=== PATIENT | female | born 2000 | race Two or more races ===

== ENCOUNTER 2025-03-12 20:27 | Inpatient (IN) | payer BC, OTHER ==
[~2025-03-12] VITALS: Ht 167.6 cm; Wt 112.8 kg
[2025-03-12 20:59] LABS: Hematocrit 42.2 % (36.0-46.0); Hemoglobin 14.2 g/dL (12.2-16.2); Mean Corpuscular Hemoglobin 28.7 pg (28.0-32.0); Mean Corpuscular Volume 85.3 fL (80.0-100.0); Nucleated Red Blood Cells % 0.0 %
--- NOTE | 2025-03-12 21:00 | ED.PDOC ---
History of Present Illness HPI Comments 24 y/o obese F presents with c/c of nonradiating, periumbilical abdominal pain and nausea. Significant history for heart murmurs, palpitations, gallstones, and . Patient endorses ongoing, ripping sensation pain since sudden onset at 0600, this morning. Pain is stated to be on the right side of her naval and is provoked with movement (5-6/10 in severity). She is not, currently, . No endorsed recent ailments, sick contacts, injuries, spoiled food consumption, or additional pertinent events/lifestyle changes. She denies any vomiting, diarrhea, constipation, urinary symptoms, fever, chills, or further associated symptoms. Chief Complaint: Abdominal Pain Time Seen by MD: 20:35 Reviewed Notes: Nurses Notes, Medications, Allergies Allergies: Coded Allergies: No Known Drug Allergy (Verified Allergy, Unknown, 03/12/25) Information Source: Patient Mode of Arrival: Ambulatory Severity: Moderate Timing: Hours Duration: Since onset Prehospital treatment: None Past Medical History PAST MEDICAL HISTORY: Denies Surgical History: Denies all surgeries INCLUSION SPECIAL EDUCATOR History: No Pertinent INCLUSION SPECIAL EDUCATOR History Family History Family History: Reviewed,noncontributory to illness, No family hx of DM, No family hx of Heart abdias, No family hx of HTN, No family hx ofKidney abdias, No family hx of Liver abdias, No family hx of Lung abdias, Family hx of Cancer, Family hx of stroke Social History Smoker: Other (nicotine vape) Alcohol: Denies ETOH Use Drugs: Denies Drug Use Constitutional: denies: chills, diaphoresis, fatigue, fever, malaise, sweats, weakness, others EENTM: denies: blurred vision, double vision, ear bleeding, ear discharge, ear drainage, ear pain, ear ringing, eye pain, eye redness, hearing loss, mouth pain, mouth swelling, nasal discharge, nose bleeding, nose congestion, nose pain, photophobia, tearing, throat pain, throat swelling, voice changes, others Respiratory: denies: cough, hemoptysis, orthopnea, SOB at rest, shortness of breath, SOB with excertion, stridor, wheezing, others Cardiovascular: denies: chest pain, dizzy spells, diaphoresis, Dyspnea on exertion, edema, irregular heart beat, left arm pain, lightheadedness, palpitations, PND, syncope, others Gastrointestinal: reports: abdominal pain, nausea; denies: abdomen distended, blood streaked bowels, constipated, diarrhea, dysphagia, difficulty swallowing, hematemesis, melena, poor appetite, poor fluid intake, rectal bleeding, rectal pain, vomiting, others Genitourinary: denies: abnormal vagina bleeding, burning, dyspareunia, dysuria, flank pain, frequency, hematuria, incontinence, pain, , vagina discharge, urgency, others Neurological: denies: dizziness, fainting, headache, left sided numbness, left sided weakness, numbness, paresthesia, pre-existing deficit, right sided num bness, right sided weakness, seizure, speech problems, tingling, tremors, weakness, others Musculoskeletal: denies: back pain, gout, joint pain, joint swelling, muscle pain, muscle stiffness, neck pain, others Integumetry: denies: bruises, change in color, change in hair/nails, dryness, laceration, lesions, lumps, rash, wounds, others Allergic/Immunocompromised: denies: Difficulty Healing, Frequent Infections, Hives, Itching, others Hematologic/Lymphatic: denies: anemia, blood clots, easy bleeding, easy bruising, swollen glands, others Endocrine: denies: excessive hunger, excessive sweating, excessive thirst, excessive urination, flushing, intolerance to cold, intolerance to heat, unexplained weight gain, unexplained weight loss, others Psychiatric: denies: anxiety, bipolar disorder, depression, hopeless, panic disorder, schizophrenia, sleepless, suicidal, others All Other Systems: Reviewed and Negative Physical Exam General Appearance: Moderate Distress HEENT: Normal ENT Inspection, Pharynx Normal, TMs Normal Neck: Full Range of Motion, Non-Tender, Normal, Normal Inspection Respiratory: Chest Non-Tender, Lungs Clear, No Accessory Muscle Use, No Respiratory Distress, Normal Breath Sounds Cardiovascular: No Edema, No JVD, No Murmur, No Gallop, Normal Peripheral Pulses, Regular Rate/Rhythm Breast Exam: Deferred Gastrointestinal: No Organomegaly, No Pulsatile Mass, Normal Bowel Sounds, RLQ, Soft, Tenderness Genitalia: Deferred Pelvic: Deferred Rectal: Deferred Extremities: No calf tenderness, Normal capillary refill, Normal inspection, Normal range of motion, Non-tender, No pedal edema Musculoskeletal : Apperance: Normal Neurologic: Alert, director life II-XII nml as Tested, No Motor Deficits, Normal Affect, Normal Mood, No Sensory Deficits Cerebellar Function: Normal Reflexes: Normal Skin: Dry, Normal Color, Warm Lymphatic: No Adenopathy Was a procedure done? Was a procedure done?: No Differential Dx Considerations may include: gastritis, gastroenteritis, GERD, cholelithiasis, cholecystitis, viral, constipation, UTI, among others X-Ray, Labs, Meds, VS Vital Signs Date Time Temp Pulse Resp B/P (MAP) Pulse Ox O2 Delivery O2 Flow Rate FiO2 03/12/25 20:29 97.8 89 16 125/83 99 97.8 Lab Test 03/12/25 20:45 Range/Units White Blood Count 10.0 4.4-10.8 10^3/uL Red Blood Count 4.95 4.0-5.20 10^6/uL Hemoglobin 14.2 12.2-16.2 g/dL Hematocrit 42.2 36.0-46.0 % Mean Corpuscular Volume 85.3 80.0-100.0 fL Mean Corpuscular Hemoglobin 28.7 28.0-32.0 pg Mean Corpuscular Hemoglobin Concent 33.6 32.0-36.0 g/dL Red Cell Distribution Width 13.8 11.8-14.3 % Platelet Count 349 140-450 10^3/uL Mean Platelet Volume 8.6 6.9-10.8 fL Neutrophils (%) (Auto) 65.9 37.0-80.0 % Lymphocytes (%) (Auto) 25.9 10.0-50.0 % Monocytes (%) (Auto) 6.0 0.0-12.0 % Eosinophils (%) (Auto) 1.3 0.0-7.0 % Basophils (%) (Auto) 0.9 0.0-2.0 % Neutrophils # (Auto) 6.6 1.6-8.6 10 ^3/uL Lymphocytes # (Auto) 2.6 0.4-5.4 10 ^3/uL Monocytes # (Auto) 0.6 0-1.3 10 ^3/uL Eosinophils # (Auto) 0.1 0-0.8 10 ^3/uL Basophils # (Auto) 0.1 0-0.2 10 ^3/uL Nucleated Red Blood Cells 0.0 % Sodium Level 142 136-145 mmol/L Potassium Level 4.2 3.5-5.1 mmol/L Chloride Level 106 98-107 mmol/L Carbon Dioxide Level 27 20-31 mmol/L Anion Gap 9 5-15 Blood Urea Nitrogen 12 9-23 mg/dL Creatinine 0.90 0.550-1.02 mg/dL Glomerular Filtration Rate Calc 90 >90 mL/min BUN/Creatinine Ratio 13.3 10.0-20.0 Serum Glucose 97 74-106 mg/dL Calcium Level 9.5 8.7-10.4 mg/dL Total Bilirubin 0.3 0.2-1.0 mg/dL Aspartate Amino Transferase (AST) 17 13-40 U/L Alanine Aminotransferase (ALT) 17 7-40 U/L Alkaline Phosphatase 89 46-116 U/L Total Protein 7.6 5.7-8.2 g/dL Albumin 4.7 3.2-4.8 g/dL Lipase 37 12-53 U/L The patient's CBC is within normal limits The chemistry panel is within normal limits The CAT scan of the abdomen and pelvis shows: Impression: 1. The appendix is not visualized in its entirety. There is suspected mild dilation of the appendix measuring up to 1 cm without periappendiceal stranding. 2. Additional findings as detailed. The patient was given Zosyn IV piggyback We are consulting with the general surgeon The patient is being admitted at this time Images Reviewed?: Images reviewed and evaluated by me Time of 1ST Reevaluation: 21:15 Reevaluation 1ST: Unchanged Patient Education/Counseling: Diagnosis, Treatment, Prognosis Family Education/Counseling: No Family Present SEPSIS Sepsis Screen Date sepsis recognized/suspect: Mar 12, 2025 Time Sepsis recognized/suspect: 2030 Recent Procedure: No On Antibiotic Therapy: No Respiratory Rate >20: No Heart Rate >90: No Temp<36 C (96.8 F) or >38.3 C: No SBP <90 or MAP <65 mmHG: No New Acute Mental Status Change: No Is the patient on CPAP, BIPAP,: No Physician Orders Urinalysis (03/12/25 20:38) Ct Ab Pel Wo Con-No Oral Or Iv (03/12/25 20:38) Zosyn Extended Infusion (03/12/25 21:45) Vital Signs Date Time Temp Pulse Resp B/P (MAP) Pulse Ox O2 Delivery O2 Flow Rate FiO2 03/12/25 20:29 97.8 89 16 125/83 99 97.8 Laboratory Tests Test 03/12/25 20:45 White Blood Count 10.0 10^3/uL (4.4-10.8) Departure 1 Departure Time of Disposition: 21:44 Impression: Primary Impression: Intractable abdominal pain Disposition: ADMITTED INPATIENT Admit to: Med Surg Condition: Fair Critical Care Note Critical Care Time?: No Stability Stability form required: Yes Unstable for transfer: ED Physician Assesment (Clinical assesment) Heart Score Heart Score: Heart Score Response (Comments) Value History N/A 0 EKG N/A 0 Age N/A 0 Risk Factors N/A 0 Troponin N/A 0 Total 0 I personally scribed for JOSÉ KAMARA MD ([email or web address]) on 03/12/25 at 21:00. Electronically submitted by Dez Zamora ([email or web address]). JOSÉ KAMARA MD Mar 12, 2025 21:00
[2025-03-12 21:12] LABS: Alanine Aminotransferase 17 U/L (7-40); Albumin 4.7 g/dL (3.2-4.8); Alkaline Phosphatase 89 U/L (46-116); Anion Gap 9 (5-15); BUN/Creatinine Ratio 13.3 (10.0-20.0); Blood Urea Nitrogen 12 mg/dL (9-23); Calcium 9.5 mg/dL (8.7-10.4); Carbon Dioxide 27 mmol/L (20-31); Chloride 106 mmol/L (98-107); Glucose 97 mg/dL (74-106); Lipase 37 U/L (12-53); Potassium 4.2 mmol/L (3.5-5.1); Sodium 142 mmol/L (136-145); Total Protein 7.6 g/dL (5.7-8.2)
[2025-03-12 21:13] LABS: Bilirubin, Total 0.3 mg/dL (0.2-1.0)
--- NOTE | 2025-03-12 21:35 | DVH ---
Exam: CT CT AB PEL WO CON-NO ORAL OR IV History: pain Comparison Study: None TECHNIQUE: Multidetector CT of the abdomen and pelvis was performed from lung bases to pubic symphysis. Imaging was performed without IV contrast. Axial, coronal, and sagittal multiplanar reformats were obtained from the axial data set by the technologist. RADIATION DOSE: CTDI vol 16.4 mGy. DLP 907.9 mGy.cm Findings: Limited evaluation of the solid organs in the absence of IV contrast. Lungs: The lung bases are clear. Liver: Unremarkable. Spleen: Unremarkable. Pancreas: Unremarkable. Gallbladder: Contracted in appearance. Cholelithiasis. Adrenals: Unremarkable Kidneys: Unremarkable. Pelvic Viscera: Unremarkable. Vasculature: Unremarkable. Retroperitoneum: Unremarkable. Bowel: No bowel obstruction. The appendix is not visualized in its entirety. There is suspected mild dilation of the appendix measuring up to 1 cm without periappendiceal stranding. Musculoskeletal: Unremarkable. Soft tissues: Unremarkable Impression: 1. The appendix is not visualized in its entirety. There is suspected mild dilation of the appendix measuring up to 1 cm without periappendiceal stranding. 2. Additional findings as detailed.
[2025-03-12] MEDS ORDERED: PIPERACILLIN-TAZOB 3.375GM 100 ML IV ONE (22:06)
[2025-03-12] MEDS: PIPERACILLIN-TAZOB 3.375GM 100 ML IV ONE (22:21)
[2025-03-12 22:24] VITALS: PULSE 84; RESP 22; O2SAT 99
--- NOTE | 2025-03-12 22:33 | DVH ---
INDICATION: Rule out appendicitis TECHNIQUE: Multiple real-time sonographic images were obtained of the right lower quadrant. COMPARISON: None FINDINGS: Targeted right lower quadrant ultrasound was performed. A tubular structure seen in the right lower quadrant although the tip is difficult to visualize. It is uncertain if this represents the appendix. No significant inflammatory changes IMPRESSION: Appendix not definitely visualized. No secondary inflammatory changes however. Consider CT if there is ongoing clinical concern.
--- NOTE | 2025-03-12 22:35 | DVHHPRES ---
History of Present Illness Resident Creating Document: RAJINDER FUNES RESIDENT History of Present Illness Ms Mera Tavares, 24-year-old female with a past medical history of trace to mild mitral regurgitation, mild left atrial dilation, palpitations with mostly nonsignificant Holter monitoring presented to the ER with the complaints of severe periumbilical pain radiating to the right lower quadrant started since 11:00 a.m. the abdominal pain was associated with mild nausea but no vomiting. She denies any recent sick contacts or travel history. She does not have any chest pain, shortness of breath, fever or any other symptoms. 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 Roe at [place] [facility] Systems Allergies: Coded Allergies: No Known Drug Allergy (Verified Allergy, Unknown, 03/12/25) Exam Vital Signs Vital Signs Date Time Temp Pulse Resp B/P (MAP) Pulse Ox O2 Delivery O2 Flow Rate FiO2 03/12/25 22:24 84 22 99 Room Air* 0 21 03/12/25 22:24 98.4 124/88 (100) 98.4 Exam Pt is lying on bed General Appearance: Alert, Oriented X3, Cooperative, Mild distress HEENT: Atraumatic, Mucous membranes moist/pink Respiratory: Clear to auscultation, Normal air movement, No added sounds Cardiovascular: Regular rate, Normal S1, Normal S2, No murmurs Abdominal/ : Active bowel sounds, Soft, no distention, right lower quadrant tenderness Extremities: No edema, Normal pulses, No tenderness/swelling Skin: No Significant rash, except past surgical scars Neuro: Normal speech, sensorimotor deficits none Psych/Mental Status: Mental status NL, Mood NL 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 Labs/Xrays Labs Test 03/12/25 22:23 03/12/25 20:45 Range/Units White Blood Count 10.0 4.4-10.8 10^3/uL Red Blood Count 4.95 4.0-5.20 10^6/uL Hemoglobin 14.2 12.2-16.2 g/dL Hematocrit 42.2 36.0-46.0 % Mean Corpuscular Volume 85.3 80.0-100.0 fL Mean Corpuscular Hemoglobin 28.7 28.0-32.0 pg Mean Corpuscular Hemoglobin Concent 33.6 32.0-36.0 g/dL Red Cell Distribution Width 13.8 11.8-14.3 % Platelet Count 349 140-450 10^3/uL Mean Platelet Volume 8.6 6.9-10.8 fL Neutrophils (%) (Auto) 65.9 37.0-80.0 % Lymphocytes (%) (Auto) 25.9 10.0-50.0 % Monocytes (%) (Auto) 6.0 0.0-12.0 % Eosinophils (%) (Auto) 1.3 0.0-7.0 % Basophils (%) (Auto) 0.9 0.0-2.0 % Neutrophils # (Auto) 6.6 1.6-8.6 10 ^3/uL Lymphocytes # (Auto) 2.6 0.4-5.4 10 ^3/uL Monocytes # (Auto) 0.6 0-1.3 10 ^3/uL Eosinophils # (Auto) 0.1 0-0.8 10 ^3/uL Basophils # (Auto) 0.1 0-0.2 10 ^3/uL Nucleated Red Blood Cells 0.0 % Sodium Level 142 136-145 mmol/L Potassium Level 4.2 3.5-5.1 mmol/L Chloride Level 106 98-107 mmol/L Carbon Dioxide Level 27 20-31 mmol/L Anion Gap 9 5-15 Blood Urea Nitrogen 12 9-23 mg/dL Creatinine 0.90 0.550-1.02 mg/dL Glomerular Filtration Rate Calc 90 >90 mL/min BUN/Creatinine Ratio 13.3 10.0-20.0 Serum Glucose 97 74-106 mg/dL Calcium Level 9.5 8.7-10.4 mg/dL Total Bilirubin 0.3 0.2-1.0 mg/dL Aspartate Amino Transferase (AST) 17 13-40 U/L Alanine Aminotransferase (ALT) 17 7-40 U/L Alkaline Phosphatase 89 46-116 U/L Total Protein 7.6 5.7-8.2 g/dL Albumin 4.7 3.2-4.8 g/dL Lipase 37 12-53 U/L SEPSIS Sepsis Screen Date sepsis recognized/suspect: Mar 12, 2025 Time Sepsis recognized/suspect: 2224 Recent Procedure: No On Antibiotic Therapy: Yes Respiratory Rate >20: No Heart Rate >90: No Temp<36 C (96.8 F) or >38.3 C: No SBP <90 or MAP <65 mmHG: No New Acute Mental Status Change: No Is the patient on CPAP, BIPAP,: No Physician Orders Urinalysis (03/12/25 20:38) Ct Ab Pel Wo Con-No Oral Or Iv (03/12/25 20:38) Piperacillin-Tazob 3.375gm (Zosyn 3.375g (03/12/25 21:45) * Surgical Consult (03/12/25 ) Right Lower Quad (03/12/25 21:47) Admit (03/12/25 22:33) Notify Md Of Changes From Base (03/12/25 22:33) Vital Signs Date Time Temp Pulse Resp B/P (MAP) Pulse Ox O2 Delivery O2 Flow Rate FiO2 03/12/25 22:24 84 22 99 Room Air* 0 21 03/12/25 22:24 98.4 84 22 124/88 (100) 99 98.4 03/12/25 20:29 97.8 89 16 125/83 99 97.8 Laboratory Tests Test 03/12/25 20:45 White Blood Count 10.0 10^3/uL (4.4-10.8) Medications Medications Dose Ordered Sig/Dede Route Start Time Stop Time Status Last Admin Dose Admin Piperacillin Sod/ Tazobactam Sod 100 ml @ 100 mls/hr ONCE ONCE IV 03/12/25 21:45 03/12/25 22:44 03/12/25 22:21 100 MLS/HR Assessment/Plan Assessment/Plan Acute appendicitis -NPO -IV fluid -IV Zosyn Q 8 -injection ketorolac -abdomen pelvis CT: The appendix is not visualized in its entirety. There is suspected mild dilation of the appendix measuring up to 1 cm without periappendi ceal stranding. Mild MR Mild LAD Palpitations not on home medications Holter monitoring: Minimum heart rate 52, maximum heart rate 160 and average 95 beats per minute. Predominant underlying rhythm sinus rhythm. Isolated SVTs were rare less than 1%, 6 and no SV couplets or SOB triplets at present. Isolated VS were rare and no V couplets or VA triplets were present. Transthoracic echo: Ejection fraction 60-65%, normal diastolic LV function. Left atrium mild dilation. Trace to mild mitral regurgitation. Follow up outpatient with pairer substandard. GI prophylaxis: Not indicated DVT prophylaxis: Not indicated Diet: NPO Goals of care discussed with the patient for more than 27 minutes: Full code status Case discussed with , patient and RN Plan discussed with: Patient, Other (RN) My Orders Orders - RAJINDER FUNES Procedure Category Date Status Time Admit ADMIT 03/12/25 Verified 22:33 Notify Md Of Changes BALA 03/12/25 Verified From Base 22:33 Date of Service: Mar 12, 2025 Billing Provider: DARION GRANT MD Common Visit Codes: [id number] INP/OBS CARE (HIGH) Secondary Visit Codes: [id number] CARE PLAN 30 MINUTES RAJINDER FUNES Mar 12, 2025 22:35
[2025-03-12 22:37] LABS: Urine Protein, UAD Negative (Negative)
[2025-03-12] MEDS: SODIUM CHLORIDE 0.9% 1,000 ML IV ONE (22:45)
[2025-03-12 23:21] LABS: Amphetamine Screen, Urine Neg (NEGATIVE); Barbiturate Scree,Urine Neg (NEGATIVE); Benzodiazephine Screen, Urine Neg (NEGATIVE); Cannabinoid Screen, Urine Neg (NEGATIVE); Cocaine Screen, Urine Neg (NEGATIVE); Opiate Scree,Urine Neg (NEGATIVE); Phencyclidine Screen, Urine Neg (NEGATIVE)
[2025-03-12 23:55] VITALS: BP 121/74; PULSE 84; PULSE 87; RESP 17; RESP 18; TEMP 98.1; O2SAT 100; O2SAT 99
[2025-03-12 23:58] LABS: INR 0.96 (0.9-1.15); Partial Thromboplastin Time 27.1 SEC (24.5-34.5); Prothrombin Time 10.2 sec (9.3-11.8)
[2025-03-13 01:00] VITALS: BP 127/69; PULSE 89; RESP 18; TEMP 98.1; O2SAT 99
[2025-03-13] MEDS ORDERED: PIPERACILLIN-TAZOB 3.375GM 100 ML IV ONE (03:09)
[2025-03-13 05:00] VITALS: BP 117/66; PULSE 83; RESP 18; TEMP 98.3; O2SAT 98
[2025-03-13] MEDS: PIPERACILLIN-TAZOB 3.375GM 100 ML IV SCH (06:03)
[2025-03-13 09:00] VITALS: BP_SYST 127; BP_SYST 86; BP_DIAS 55; BP_DIAS 84; PULSE 79; PULSE 89; RESP 16; RESP 20; TEMP 97.5; TEMP 97.8; O2SAT 94; O2SAT 99
[2025-03-13] MEDS ORDERED: KETOROLAC TROMETH 30 MG/ML 1ML VIAL ONE (11:02)
[2025-03-13] MEDS: KETOROLAC TROMETH 30 MG/ML 1ML VIAL IV PRN (11:22)
[2025-03-13 13:00] VITALS: BP 127/82; PULSE 87; RESP 20; TEMP 98.3; O2SAT 98
[2025-03-13] MEDS ORDERED: BUPIVACAINE 0.25% INJ 50ML VIAL ONE (13:11)
[2025-03-13] MEDS: ceFAZolin 2 GM/D5W50ml 50 ML IV ONE (14:00)
--- NOTE | 2025-03-13 14:00 | DVHINCON2 ---
Consultation - Surgical Date Seen: Mar 13, 2025 Referring Physician Reason for Consultation Appendicitis History of Present Illness History of Present Illness Mrs. Tavares is a 24-year-old female who presented with periumbilical abdominal pain that started yesterday morning after she had a meal. States that she felt like a tugging pulling type of pain. Decided to come to the emergency department given that the pain still present. Denies nausea and/or vomiting and or diarrhea. Denies fevers, chills, changes in urinary or stooling habits. Past Medical/Surgical History Past Medical/Surgical History Past surgical history x1 Past medical history heart murmur Family and Social History Family and Social History Noncontributory Allergies and medications Allergies: Coded Allergies: No Known Drug Allergy (Verified Allergy, Unknown, 03/12/25) Review of systems Review of Systems: Deferred Examination Vital signs Vital Signs Date Time Temp Pulse Resp B/P (MAP) Pulse Ox O2 Delivery O2 Flow Rate FiO2 03/13/25 09:00 97.5 89 20 127/84 (98) 99 97.5 03/12/25 23:55 Room Air* 0 21 Medications Current Medications Medications (Trade) Dose Ordered Sig/Dede Route PRN Reason Start Time Stop Time Status Last Admin Piperacillin Sod/ Tazobactam Sod 100 ml @ 25 mls/hr Q8HR IV 03/13/25 06:00 03/13/25 06:03 Ketorolac Tromethamine (Toradol Injection) 15 mg Q6HPRN PRN IV SEVERE PAIN (7-10 PAIN SCALE) 03/12/25 22:45 03/17/25 22:44 03/13/25 11:22 Laboratory Labs Test 03/12/25 22:23 03/12/25 20:45 Range/Units Urine Color Light-yellow Yellow Urine Clarity Clear Clear Urine pH 6.5 5.0-9.0 Urine Specific [place] 1.024 1.001-1.035 Urine Protein Negative Negative Urine Ketones Negative Negative Urine Blood Negative Negative /uL Urine Nitrite Negative Negative Urine Bilirubin Negative Negative Urine Urobilinogen Normal Negative mg/dL Urine Leukocyte Esterase 2+ Negative /uL Urine RBC 1 0 - 4 /hpf Urine Microscopic WBC 2 0-5 /HPF Urine Squamous Epithelial Cells Few <5 /hpf Urine Bacteria Few H None Seen /hpf Urine Glucose Normal Normal mg/dL Urine Test Negative Negative Urine Opiates Screen Neg NEGATIVE Urine Fentanyl Screen Neg NEGATIVE Urine Barbiturates Screen Neg NEGATIVE Urine Phencyclidine Screen Neg NEGATIVE Urine Amphetamines Screen Neg NEGATIVE Urine Benzodiazepines Screen Neg NEGATIVE Urine Cocaine Screen Neg NEGATIVE Urine Cannabinoids Screen Neg NEGATIVE White Blood Count 10.0 4.4-10.8 10^3/uL Red Blood Count 4.95 4.0-5.20 10^6/uL Hemoglobin 14.2 12.2-16.2 g/dL Hematocrit 42.2 36.0-46.0 % Mean Corpuscular Volume 85.3 80.0-100.0 fL Mean Corpuscular Hemoglobin 28.7 28.0-32.0 pg Mean Corpuscular Hemoglobin Concent 33.6 32.0-36.0 g/dL Red Cell Distribution Width 13.8 11.8-14.3 % Platelet Count 349 140-450 10^3/uL Mean Platelet Volume 8.6 6.9-10.8 fL Neutrophils (%) (Auto) 65.9 37.0-80.0 % Lymphocytes (%) (Auto) 25.9 10.0-50.0 % Monocytes (%) (Auto) 6.0 0.0-12.0 % Eosinophils (%) (Auto) 1.3 0.0-7.0 % Basophils (%) (Auto) 0.9 0.0-2.0 % Neutrophils # (Auto) 6.6 1.6-8.6 10 ^3/uL Lymphocytes # (Auto) 2.6 0.4-5.4 10 ^3/uL Monocytes # (Auto) 0.6 0-1.3 10 ^3/uL Eosinophils # (Auto) 0.1 0-0.8 10 ^3/uL Basophils # (Auto) 0.1 0-0.2 10 ^3/uL Nucleated Red Blood Cells 0.0 % Prothrombin Time 10.2 9.3-11.8 sec Prothrombin Time INR 0.96 0.9-1.15 Activated Partial Thromboplast Time 27.1 24.5-34.5 SEC Sodium Level 142 136-145 mmol/L Potassium Level 4.2 3.5-5.1 mmol/L Chloride Level 106 98-107 mmol/L Carbon Dioxide Level 27 20-31 mmol/L Anion Gap 9 5-15 Blood Urea Nitrogen 12 9-23 mg/dL Creatinine 0.90 0.550-1.02 mg/dL Glomerular Filtration Rate Calc 90 >90 mL/min BUN/Creatinine Ratio 13.3 10.0-20.0 Serum Glucose 97 74-106 mg/dL Calcium Level 9.5 8.7-10.4 mg/dL Total Bilirubin 0.3 0.2-1.0 mg/dL Aspartate Amino Transferase (AST) 17 13-40 U/L Alanine Aminotransferase (ALT) 17 7-40 U/L Alkaline Phosphatase 89 46-116 U/L Total Protein 7.6 5.7-8.2 g/dL Albumin 4.7 3.2-4.8 g/dL Lipase 37 12-53 U/L Examination: GENERAL:Normal (AAO x3), LUNGS:Normal (Nonlabored breathing with symmetric expansion), ABDOMEN:Normal (Nondistended, soft, depressible, Pfannenstiel scar healed, very mild right lower quadrant tenderness, no rebound, no guarding) Problem List/Assessment/Plan Problems: (1) Appendicitis Assessment and Plan Mrs. Tavares is a 24-year-old female who presented right-sided lower abdominal pain since yesterday. CT scan shows an elongated appendix, no stranding and bilateral enlarged ovaries. CT was read as partial visualization of the appendix with an area measuring 1 cm. For this reason surgery was offered, but I also explained that the pain might be due to ovarian pain versus early appendicitis. Offered surgery versus observation, patient would like to proceed with surgery. Procedure, risks, benefits, complications, and alternatives were discussed with the patient. 1. On-call to OR for laparoscopic appendectomy, possible open 2. NPO Plan discussed with Plan discussed with: Patient Visit Coding Surgery Date of Service if different f: Mar 13, 2025 Billing Provider: ALEX FAY MD Surgery Visit Codes: 75650 - INP CONSULT <110 MIN ALEX FAY MD Mar 13, 2025 14:00
[2025-03-13] MEDS ORDERED: ceFAZolin 2 GM/D5W50ml 50 ML IV ONE (14:08)
[2025-03-13] MEDS ORDERED: ONDANSETRON HCL 4 MG/2 ML VIAL ONE ×3 (14:09→20:16)
[2025-03-13] MEDS ORDERED: METOCLOPRAMIDE HCL 5MG/ml INJ 2ml VIAL ONE (14:09)
[2025-03-13] MEDS ORDERED: LIDOCAINE 2% (LOCAL ANESTH.) PF 5ml SDV ONE (14:09)
[2025-03-13] MEDS ORDERED: MIDAZOLAM HCL 2MG/2ML 2ml VIAL (1mg/ml) ONE (14:09)
[2025-03-13] MEDS ORDERED: fentaNYL CITRATE 100 MCG/2 ML VL ONE (14:09)
[2025-03-13] MEDS ORDERED: PROPOFOL 10 MG/ML 20 ML IV ONE (14:10)
[2025-03-13] MEDS ORDERED: ROCURONIUM 10MG/ML 10ML VIAL IV ONE (14:10)
[2025-03-13] MEDS ORDERED: HYDROmorphone HCL 2 MG/ML VL/or syr IV PRN (14:15)
[2025-03-13] MEDS ORDERED: METOCLOPRAMIDE HCL 5MG/ml INJ 2ml VIAL IV PRN (14:15)
[2025-03-13] MEDS ORDERED: HYDROmorphone HCL 2 MG/ML VL/or syr ONE (14:43)
[2025-03-13] MEDS ORDERED: SUGAMMADEX 200mg/2ml Vial (100MG/ML) IV ONE (14:44)
[2025-03-13] MEDS ORDERED: ALBUTEROL SULFATE 90 MCG MDI IN ONE (14:44)
--- NOTE | 2025-03-13 15:22 | DVHPN2 ---
Subjective This is a follow up on 24-year-old young female is here for acute appendicitis. 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 Medications Current Medications Medications Dose Ordered Sig/Dede Route Start Time Stop Time Status Last Admin Dose Admin Piperacillin Sod/ Tazobactam Sod 100 ml @ 25 mls/hr Q8HR IV 03/13/25 06:00 03/13/25 06:03 25 MLS/HR Ketorolac Tromethamine 15 mg Q6HPRN PRN IV 03/12/25 22:45 03/17/25 22:44 03/13/25 11:22 15 MG Laboratory Results Laboratory Tests 03/12/25 20:45 Chemistry Test 03/12/25 20:45 Albumin 4.7 g/dL (3.2-4.8) Calcium Level 9.5 mg/dL (8.7-10.4) Total Protein 7.6 g/dL (5.7-8.2) Coagulation Test 03/12/25 20:45 Prothrombin Time 10.2 sec (9.3-11.8) Prothrombin Time INR 0.96 (0.9-1.15) Activated Partial Thromboplast Time 27.1 SEC (24.5-34.5) Lipid panel Test 03/12/25 20:45 Lipase 37 U/L (12-53) LFT Test 03/12/25 20:45 Alanine Aminotransferase (ALT) 17 U/L (7-40) Alkaline Phosphatase 89 U/L (46-116) Aspartate Amino Transferase (AST) 17 U/L (13-40) Total Bilirubin 0.3 mg/dL (0.2-1.0) Urinalysis Test 03/12/25 22:23 Urine Color Light-yellow (Yellow) Urine Clarity Clear (Clear) Urine pH 6.5 (5.0-9.0) Urine Specific [place] 1.024 (1.001-1.035) Urine Protein Negative (Negative) Urine Ketones Negative (Negative) Urine Blood Negative /uL (Negative) Urine Nitrite Negative (Negative) Urine Bilirubin Negative (Negative) Urine Urobilinogen Normal mg/dL (Negative) Urine Leukocyte Esterase 2+ /uL (Negative) Urine RBC 1 /hpf (0 - 4) Urine Microscopic WBC 2 /HPF (0-5) Urine Squamous Epithelial Cells Few /hpf (<5) Urine Bacteria Few /hpf (None Seen) H Urine Glucose Normal mg/dL (Normal) Urine Test Negative (Negative) Assessment/Plan Assessment/Plan 24-year-old female with a no significant past medical history besides morbid obesity classII presented to the hospital with a right lower quadrant abdominal pain with the nausea without any vomiting found to have 1. Intractable abdominal pain 2. Acute appendicitis 3. Morbid obesity classII -NPO, empirical IV antibiotics, General surgery consultation. 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
--- NOTE | 2025-03-13 15:35 | DVHOP2 ---
Operative Report - 2 Report Details Date: 03/13/25 Preop Diagnosis: Possible early appendicitis Postop Diagnosis: same Surgeon: Adria Dominguez MD Anesthesiologist: Gilberto Wall CRNA Anesthesia: General Consent: The patient was informed of the risks and benefits of the procedure. These include but are not limited to complications of anesthesia, postoperative infection, incomplete relief of symptoms, recurrence of symptoms, damage to bl ood vessels, nerves and tendons, deep venous thrombosis, pulmonary embolism and possible need for repeat surgery in the future. Complications: none Estimated Blood Loss: 2ml Findings: Elongated appendix, with mild hyperemia. Prominent right ovary with ruptured cyst, and mild serous fluid in pelvis. Prominent left ovary, without cysts. Indications for Surgery: Possible early appendicitis on imaging and physical exam Name of Procedure Performed Laparoscopic appendectomy Procedure Details Procedure Details: Upon arriving to the operating room the patient was transferred to the operating table and placed in the supine position with arms extended. General endotracheal anesthesia was induced. Left arm was then tucked and [place] inserted. Patient was then prepped and draped in the standard sterile surgical fashion with chlorhexidine. I then proceeded to make an infraumbilical curvilinear incision and carried it down to the fascia. Once at the fascia I grasped the umbilical stalk with a Vanessa clamp, I then walked the Vanessa clamp down to the base of the umbilical stalk. Once at the base of the umbilical stalk I gained entry into the peritoneal cavity utilizing Abran technique. I then placed a fascial retention stitch of 0 Vicryl in [id number] fashion. I then inserted the Sinha trocar into the peritoneal cavity and insufflated to 15 mmHg with toleration. I then inserted a 10 mm 30 degree laparoscope, surveyed the entry site, no injuries noted. I then proceeded to place 2 additional working ports 5 mm incise under direct vision at the suprapubic area and at the left lower quadrant area. Patient was then placed in the Trendelenburg position and right side up. I then proceeded to look at the right ovary, right ovary was prominent and with the ruptured ovarian cyst, with minimal physiologic fluid in the pelvis, which was suctioned. Pictures were also taken. I then looked at the left-sided , it was also prominent but no cyst visualized. I then directed my attention to the cecum, and swept some small bowel aside and immediately identified the appendix, which appeared elongated and slightly hyperemic. I then grasped the appendix close to its base. I utilized a [place] to make a mesenteric rent at the base of the appendix. I then utilized a Endo-CAMRON 45 mm white load to transect the appendix at its base. I utilized a 2nd white load to transect the mesoappendix. Appendix was placed in the Endo-Catch bag and taken out of the peritoneal cavity through the infraumbilical incision. I then took a look at the staple lines, there was minimal oozing coming from the mesenteric staple line, I placed 4 clips along the staple line 5 mm in size. Hemostasis achieved. The cecum staple line was intact and hemostatic. Patient's position was then leveled, staple lines checked again, they were both intact and hemostatic. This concluded the intraperitoneal portion of the operation. Both working ports were removed under direct vision, no bleeding coming from the abdominal wall. Peritoneal cavity was allowed to fully desufflate. Previous fascial retention stitch was closed. All skin sites were closed with 4-0 Monocryl and Dermabond. 0.25% Marcaine was used as local anesthetic. Patient tolerated the procedure well and was transferred to PACU in stable condition. All counts were complete and correct at the end of the procedure. Specimen: Appendix Condition Stable Disposition Still a Patient ADRIA FAY MD Mar 13, 2025 15:35
[2025-03-13] MEDS ORDERED: ACETAMINOPHEN IV 100 ML IV ONE (15:37)
[2025-03-13] MEDS: ACETAMINOPHEN IV 1000 MG/100ML (10MG/ML) IV ONE (15:41)
[2025-03-13] MEDS: ONDANSETRON HCL 4 MG/2 ML VIAL IV PRN ×2 (15:44→20:20)
[2025-03-13] MEDS ORDERED: HYDROcodone-ACET 5/325MG TAB PO PRN (15:45)
[2025-03-13] MEDS ORDERED: HYDROcodone-ACET 10/325MG TAB PO PRN (15:45)
[2025-03-13 16:35] VITALS: BP 123/75; PULSE 73; RESP 16; TEMP 97.4; O2SAT 98
[2025-03-13] MEDS ORDERED: ACETAMINOPHEN 325 MG TAB PO ONE ×2 (18:49→23:50)
[2025-03-13] MEDS: ACETAMINOPHEN 325 MG TAB PO SCH (18:51)
[2025-03-13 21:00] VITALS: BP 117/76; PULSE 90; RESP 17; TEMP 97.5; O2SAT 98
[2025-03-13] MEDS ORDERED: IBUPROFEN 600 MG TAB PO ONE (21:31)
[2025-03-13] MEDS: IBUPROFEN 600 MG TAB PO SCH (21:39)
[2025-03-14 01:00] VITALS: BP 108/62; PULSE 61; RESP 16; TEMP 97.7; O2SAT 96
[2025-03-14 05:00] VITALS: BP 97/39; PULSE 90; RESP 16; TEMP 98; O2SAT 98
[2025-03-14] MEDS ORDERED: IBUPROFEN 600 MG TAB PO ONE ×2 (05:49→13:54)
[2025-03-14 06:03] LABS: Hematocrit 38.5 % (36.0-46.0); Hemoglobin 13.0 g/dL (12.2-16.2); Mean Corpuscular Hemoglobin 28.5 pg (28.0-32.0); Mean Corpuscular Volume 84.4 fL (80.0-100.0); Nucleated Red Blood Cells % 0.1 %
[2025-03-14 08:00] VITALS: PULSE 85; RESP 18; O2SAT 97
[2025-03-14 08:57] VITALS: BP 107/65; PULSE 85; RESP 18; TEMP 98.5; O2SAT 97
--- NOTE | 2025-03-14 11:38 | DVHPN2 ---
Progress Note - Surgical Date Seen: Mar 14, 2025 Post op day Post op day: 1 Subjective Patient reports: Feels better (Patient feeling good this morning, no abdominal pain complaints, tolerating diet.) Review of Systems: Deferred Objective Vital signs Vital Sign Date Time Temp Pulse Resp B/P (MAP) Pulse Ox O2 Delivery O2 Flow Rate FiO2 03/14/25 08:57 98.5 85 18 107/65 (79) 97 98.5 03/14/25 08:00 Room Air* 0 21 Total Intake and Output 03/13/25 03/13/25 03/14/25 15:00 23:00 07:00 Intake Total 100 ml 360 ml 700 ml Output Total 500 ml Balance 100 ml -140 ml 700 ml Medications Current Medications Medications Dose Ordered Sig/Dede Route Start Time Stop Time Status Last Admin Dose Admin Piperacillin Sod/ Tazobactam Sod 100 ml @ 25 mls/hr Q8HR IV 03/13/25 06:00 03/14/25 05:59 25 MLS/HR Acetaminophen 650 mg Q6HR PO 03/13/25 18:00 03/13/25 23:51 650 MG Ibuprofen 600 mg TID PO 03/13/25 22:00 03/14/25 06:06 600 MG Acetaminophen/ Hydrocodone Bitart 1 tab Q4HPRN PRN PO 03/13/25 15:45 Acetaminophen/ Hydrocodone Bitart 1 tab Q4HP PRN PO 03/13/25 15:45 Ondansetron HCl 4 mg Q4HPRN PRN IV 03/13/25 19:15 03/13/25 20:20 4 MG Laboratory Laboratory Tests 03/14/25 04:40 03/12/25 20:45 Test 03/12/25 20:45 Range/Units Serum Glucose 97 74-106 mg/dL Examination: GENERAL:Normal (AAO x3), LUNGS:Normal (Nonlabored breathing with symmetric expansion), ABDOMEN:Normal (Nondistended, incision sites with overlying skin glue and without surrounding signs of infection, infraumbilical ecchymosis, soft, depressible, appropriately tender) Labs and/or images reviewed: Labs reviewed by me (No leukocytosis) Problem List/Assessment/Plan Problems: (1) Appendicitis Assessment and Plan Mrs. Tavares is a 24-year-old female who presented yesterday with early acute appendicitis versus ovarian pain. Patient is currently postop day 1 from laparoscopic appendectomy, appendix was very elongated just as it was seen on the CT scan and mildly hyperemic, but no bhanu appendicitis. Patient also had a ruptured right ovarian cyst. Given that the patient is doing well today she can be discharged home. 1. Cleared for discharge per surgical standpoint 2. No lifting over 10 lb for 6 weeks 3. May shower today, soap and water okay to run over incision sites. No swimming and/or bathing for 2 weeks. 4. 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 Recommend [place] 5-325 mg 1 tab p.o. every 6 hours p.r.n. severe pain 6. Recommend MiraLax 1 packet daily PRN constipation for 10 days 7. No driving while taking narcotics 8. Follow up with Dr. Ryan at surgery [facility] in 2 weeks, please call for an appointment. My Orders My Orders Orders - ALEX FAY MD Procedure Category Date Status Time Obtain Consent For: ORDERS 03/13/25 Transmitted 13:22 Obtain Consent For BALA 03/13/25 In Process Anesthesia 13:22 Acetaminophen Tablet PHA 03/13/25 In Process (Tylenol Tablet) 18:00 Ibuprofen Tablet PHA 03/13/25 In Process (Motrin Tablet) 22:00 Hydrocodone-Acet PHA 03/13/25 In Process 5/325mg Tab ([place] 15:45 Hydrocodone-Acet PHA 03/13/25 In Process 10/325mg Tab ([place] 15:45 Regular Diet DIET 03/13/25 Transmitted Dinner Plan discussed with Plan discussed with: Patient Visit Coding Surgery Date of Service if different f: Mar 14, 2025 Billing Provider: ALEX FAY MD Surgery Visit Codes: [id number] INP/OBS CARE(HIGH) ALEX FAY MD Mar 14, 2025 11:38
[2025-03-14 12:44] VITALS: BP 108/73; PULSE 86; RESP 18; TEMP 98.1; O2SAT 98
[2025-03-14] MEDS ORDERED: POLY335015 PO (15:47)
[2025-03-14] MEDS ORDERED: NALO4SPR2 (15:47)
[2025-03-14] MEDS ORDERED: HYDR-4902 PO (15:47)
--- NOTE | 2025-03-14 15:50 | DVHDS2 ---
Discharge Summary Date of Admission Mar 12, 2025 at 22:33 Date of Discharge: Mar 14, 2025 Labs/Diagnostic Data: Laboratory Results Test 03/14/25 04:40 03/12/25 22:23 03/12/25 20:45 White Blood Count 10.9 10^3/uL (4.4-10.8) Red Blood Count 4.57 10^6/uL (4.0-5.20) Hemoglobin 13.0 g/dL (12.2-16.2) Hematocrit 38.5 % (36.0-46.0) Mean Corpuscular Volume 84.4 fL (80.0-100.0) Mean Corpuscular Hemoglobin 28.5 pg (28.0-32.0) Mean Corpuscular Hemoglobin Concent 33.8 g/dL (32.0-36.0) Red Cell Distribution Width 13.7 % (11.8-14.3) Platelet Count 285 10^3/uL (140-450) Mean Platelet Volume 8.9 fL (6.9-10.8) Neutrophils (%) (Auto) 65.7 % (37.0-80.0) Lymphocytes (%) (Auto) 26.4 % (10.0-50.0) Monocytes (%) (Auto) 6.9 % (0.0-12.0) Eosinophils (%) (Auto) 0.7 % (0.0-7.0) Basophils (%) (Auto) 0.3 % (0.0-2.0) Neutrophils # (Auto) 7.2 10 ^3/uL (1.6-8.6) Lymphocytes # (Auto) 2.9 10 ^3/uL (0.4-5.4) Monocytes # (Auto) 0.8 10 ^3/uL (0-1.3) Eosinophils # (Auto) 0.1 10 ^3/uL (0-0.8) Basophils # (Auto) 0 10 ^3/uL (0-0.2) Nucleated Red Blood Cells 0.1 % Urine Color Light-yellow (Yellow) Urine Clarity Clear (Clear) Urine pH 6.5 (5.0-9.0) Urine Specific [place] 1.024 (1.001-1.035) Urine Protein Negative (Negative) Urine Ketones Negative (Negative) Urine Blood Negative /uL (Negative) Urine Nitrite Negative (Negative) Urine Bilirubin Negative (Negative) Urine Urobilinogen Normal mg/dL (Negative) Urine Leukocyte Esterase 2+ /uL (Negative) Urine RBC 1 /hpf (0 - 4) Urine Microscopic WBC 2 /HPF (0-5) Urine Squamous Epithelial Cells Few /hpf (<5) Urine Bacteria Few /hpf (None Seen) Urine Glucose Normal mg/dL (Normal) Urine Test Negative (Negative) Urine Opiates Screen Neg (NEGATIVE) Urine Fentanyl Screen Neg (NEGATIVE) Urine Barbiturates Screen Neg (NEGATIVE) Urine Phencyclidine Screen Neg (NEGATIVE) Urine Amphetamines Screen Neg (NEGATIVE) Urine Benzodiazepines Screen Neg (NEGATIVE) Urine Cocaine Screen Neg (NEGATIVE) Urine Cannabinoids Screen Neg (NEGATIVE) Prothrombin Time 10.2 sec (9.3-11.8) Prothrombin Time INR 0.96 (0.9-1.15) Activated Partial Thromboplast Time 27.1 SEC (24.5-34.5) Sodium Level 142 mmol/L (136-145) Potassium Level 4.2 mmol/L (3.5-5.1) Chloride Level 106 mmol/L (98-107) Carbon Dioxide Level 27 mmol/L (20-31) Anion Gap 9 (5-15) Blood Urea Nitrogen 12 mg/dL (9-23) Creatinine 0.90 mg/dL (0.550-1.02) Glomerular Filtration Rate Calc 90 mL/min (>90) BUN/Creatinine Ratio 13.3 (10.0-20.0) Serum Glucose 97 mg/dL (74-106) Calcium Level 9.5 mg/dL (8.7-10.4) Total Bilirubin 0.3 mg/dL (0.2-1.0) Aspartate Amino Transferase (AST) 17 U/L (13-40) Alanine Aminotransferase (ALT) 17 U/L (7-40) Alkaline Phosphatase 89 U/L (46-116) Total Protein 7.6 g/dL (5.7-8.2) Albumin 4.7 g/dL (3.2-4.8) Lipase 37 U/L (12-53) Other Laboratory Tests 03/14/25 04:40 03/12/25 20:45 Brief Hx & Hospital Course: 24-year-old female with a no significant past medical history besides morbid obesity classII presented to the hospital with a right lower quadrant abdominal pain with the nausea without any vomiting found to have early acute appendicitis. Patient was seen by General surgery underwent laparoscopic cholecystectomy. Patient does have morbid obese classIII, diet weight reduction and exercise counseling has been discussed. Patient is being discharged under stable condition with a close follow up as an outpatient with General surgery. Condition at Discharge: Stable Final Diagnosis/Problems List 24-year-old female with a no significant past medical history besides morbid obesity classII presented to the hospital with a right lower quadrant abdominal pain with the nausea without any vomiting found to have 1. Intractable abdominal pain 2. Acute appendicitis 3. Morbid obesity classII Discharge Disposition: Home SNF Discharge Will this Physician continue t: No Discharge Instruct/Medications Diet: Cardiac 2g Na,low cholest Activity: See Comment Activity comment: No driving, no signing legal documents, no playing on machinery while on narcotics Follow Up/Referral: Follow up with the general surgery in 1-2 weeks Medications: [place], Narcan, MiraLax as prescribed. New Medications: Hydrocodone-Acetaminophen (Hydrocodone Bitartrate/AC 5-325 mg) 1 Tab Tab 1 TAB PO Q8HP PRN, #14 TAB Naloxone HCl (Narcan) 4 Mg/0.1 Ml Spr 4 MG NA IT SECURITY ARCHITECT, #2 SPRAY Polyethylene Glycol 3350 (Miralax) 17 Gm Pow 17 GM PO DAILYPRN PRN, #14 POW Scheduled Naloxone HCl (Narcan), 4 MG NA IT SECURITY ARCHITECT Scheduled PRN Hydrocodone-Acetaminophen (Hydrocodone Bitartrate/AC 5-325 mg), 1 TAB PO Q8HP PRN Polyethylene Glycol 3350 (Miralax), 17 GM PO DAILYPRN PRN Discharge Statement: "Patient was advised to return to the ER or call 911 if any headaches, dizziness, shortness of breath, chest pain, abdominal pain, bleeding, fevers, or worsening of medical condition. Patient was counseled about treatment plan, medications, possible side effects, patientverbalized understanding. All questions were answered to the best of my ability. This discharge took greater then 30 minutes in planning, reviewing documentation, counseling the patient, and discussing with other team members." ASSESSMENT ASSESSMENT Assessment 24-year-old female with a no significant past medical history besides morbid obesity classII presented to the hospital with a right lower quadrant abdominal pain with the nausea without any vomiting found to have 1. Intractable abdominal pain 2. Acute appendicitis 3. Morbid obesity classII Date of Service: Mar 14, 2025 Billing Provider: PINEDA PHILIP MD Common Visit Codes: [id number] DISCH DAY >30min PINEDA PHILIP MD Mar 14, 2025 15:50
== END 2025-03-14 16:41 | disposition home or self-care (01) | DRG 398 ==
LOC: ER 20:27 → OVERFLOW 22:33 → WEST WING 03-13 17:30
PROVIDERS: ATTEND Student in an Organized Health Care Education/Training Program
PROC: 0DTJ4ZZ Resection of Appendix, Percutaneous Endoscopic Approach (ICD-10-PCS; principal; 2025-03-13 14:13)
DX: K35.80 Unspecified acute appendicitis (principal); Z68.41 Body mass index [BMI] 40.0-44.9, adult; E66.01 Morbid (severe) obesity due to excess calories; F17.290 Nicotine dependence, other tobacco product, uncomplicated; Z98.891 History of uterine scar from previous surgery; N83.201 Unspecified ovarian cyst, right side
CPT/HCPCS: 36415; 74176; 76705; 80053; 80307; 81001; 81025; 83690; 85025; 85610; 85730; 86850; 86900; 86901; 96365; G0378; J0131; J1885; J2003; J2250; J2405; J2543; J2704; J3490